=== PATIENT | male | born 1960 | race Caucasian/White ===

== ENCOUNTER 2024-05-22 10:08 | Day surgery (SDC) | payer OTHER ==
[~2024-05-22] VITALS: Ht 180.3 cm; Wt 86.9 kg
[2024-05-22] MEDS: NS 1,000 ML IV ONE (10:42)
[2024-05-22] MEDS ORDERED: propofoL 200 MG/20 ML VIAL As Ordered ONE (11:15)
[2024-05-22] MEDS ORDERED: LIDOCAINE 2% 100MG/5ML SDV (FOR ANES.) As Ordered ONE (11:15)
[2024-05-22 13:12] VITALS: TEMP 96.1
[2024-05-22 13:36] VITALS: BP 128/67; O2SAT 100
== END 2024-05-22 13:51 | disposition home or self-care (01) ==
LOC: M OPP 10:08
PROVIDERS: ATTEND Surgery
DX: Z12.11 Encounter for screening for malignant neoplasm of colon (principal); Z80.0 Family history of malignant neoplasm of digestive organs; D12.6 Benign neoplasm of colon, unspecified; K64.4 Residual hemorrhoidal skin tags; Z87.891 Personal history of nicotine dependence

== ENCOUNTER 2024-07-24 07:30 | Inpatient (IN) | payer OTHER ==
[~2024-07-24] VITALS: Ht 180.3 cm; Wt 86.8 kg
[2024-07-24] MEDS ORDERED: HOME MED LIST COMPLETE! XX SCH (09:55)
[2024-07-24] MEDS ORDERED: NOXI1TAB PO (10:00)
[2024-07-24] MEDS: LR 1,000 ML IV SCH ×3 (10:10→19:25)
[2024-07-24] MEDS: ALVIMOPAN 12 MG CAPSULE (ENTEREG) PO ONE (10:10)
[2024-07-24] MEDS: CelecoXIB 400 MG CAP PO ONE (10:10)
[2024-07-24] MEDS ORDERED: MIDAZOLAM INJ 2MG/2ML VIAL As Ordered ONE (14:19)
[2024-07-24] MEDS ORDERED: LIDOCAINE 2% 100MG/5ML SDV (FOR ANES.) As Ordered ONE (14:19)
[2024-07-24] MEDS ORDERED: ACETAMINOPHEN 1000MG 100ML IV BAG As Ordered ONE (14:19)
[2024-07-24] MEDS ORDERED: propofoL 200 MG/20 ML VIAL As Ordered ONE (14:19)
[2024-07-24] MEDS ORDERED: fentaNYL 100 MCG/2 ML INJECTION As Ordered ONE (14:19)
[2024-07-24] MEDS ORDERED: ROCURONIUM BROMIDE 50MG/5ML VIAL As Ordered ONE (14:20)
[2024-07-24] MEDS: ceFAZolin SOD 2 GM in IV 1 EA IV ONE (15:00)
[2024-07-24] MEDS: metroNIDAZOLE 500 MG in IV 1 EA IV ONE (15:10)
[2024-07-24] MEDS: HEPARIN SOD (PORCINE) 5000UNITS/ML 1ML VIAL/SYRINGE SQ ONE (15:11)
[2024-07-24] MEDS ORDERED: GLYCOPYRROLATE INJ 0.2 MG/ML 2 ML VIAL As Ordered ONE (15:27)
[2024-07-24] MEDS ORDERED: ePHEDrine SULFATE 25 MG/5 ML(5MG/ML) SYRINGE As Ordered ONE (16:03)
[2024-07-24] MEDS ORDERED: SUGAMMADEX SODIUM 500 MG/5 ML VIAL (BRIDION) As Ordered ONE (16:03)
[2024-07-24] MEDS ORDERED: HYDROmorphone HCL 2MG/ML 1ML VIAL As Ordered ONE (16:03)
[2024-07-24] MEDS ORDERED: dexmedeTOMIDine (4MCG/ML)200MCG/50ML BTL (PRECEDEX) As Ordered ONE (16:03)
[2024-07-24] MEDS ORDERED: ONDANSETRON 4MG 2ML VIAL As Ordered ONE (16:06)
[2024-07-24] MEDS ORDERED: KETOROLAC 60MG 2ML VIAL As Ordered ONE (16:21)
[2024-07-24] MEDS ORDERED: METOCLOPRAMIDE INJ 10MG/2ML VIAL As Ordered ONE (16:55)
[2024-07-24] MEDS: INDOCYANINE GREEN 25MG VIAL (IC-GREEN) As Ordered ONE (17:20)
[2024-07-24] MEDS ORDERED: SEVOFLURANE INHAL SOLN 250 ML BTL As Ordered ONE (18:29)
[2024-07-24] MEDS: ceFAZolin 2 GM/D5W 50 ML IV BAG As Ordered ONE (19:00)
[2024-07-24] MEDS: LIDOCAINE 1% SDV 30ML VIAL As Ordered ONE (19:10)
[2024-07-24] MEDS ORDERED: MORPHINE 4 MG/ML 1ML VIAL IV PRN (19:25)
[2024-07-24] MEDS ORDERED: ONDANSETRON 4MG 2ML VIAL IV PRN ×2 (19:25)
[2024-07-24] MEDS ORDERED: fentaNYL 100 MCG/2 ML INJECTION IV PRN (19:25)
[2024-07-24 20:55] VITALS: BP 153/77; TEMP 97.3; O2SAT 95
[2024-07-24 21:22] VITALS: BP 129/70; TEMP 97.3; O2SAT 98
[2024-07-24 22:22] VITALS: BP 109/60; TEMP 97.3; O2SAT 96
[2024-07-24 23:22] VITALS: BP 111/65; TEMP 97.2; O2SAT 94
[2024-07-24] MEDS: KETOROLAC 30 MG/ML 1ML VIAL IV SCH (23:22)
[2024-07-25] VITALS (7 sets, daily range): BP systolic 108–140; BP diastolic 55–90; TEMP 97.2–99.1; O2SAT 94–97
[2024-07-25] MEDS: PERCOCET 5MG/325MG TAB PO PRN ×2 (04:17→15:30)
[2024-07-25 06:01] LABS: BASO % 0.1 % (0.0-1.0); HEMATOCRIT 38.6 % (42.0-52.0); HEMOGLOBIN 13.1 g/dl (13.5-17.5); LYMPH # 0.8 10^3/uL (1.5-5.0); LYMPH % 5.8 % (24.0-44.0); MEAN CORPUSCULAR HEMOGLOBIN 30.3 pg (27.0-33.0); MEAN CORPUSCULAR HGB CONC 33.9 g/dl (32.0-36.5); MEAN CORPUSCULAR VOLUME 89.4 fl (80.0-96.0); MONO # 0.8 10^3/uL (0.0-0.8); MONO % 6.2 % (2.0-8.0); NEUTROPHILS # 11.8 10^3/uL (1.5-8.5); NEUTROPHILS % 87.3 % (36.0-66.0); PLATELET COUNT, AUTOMATED 149 10^3/uL (150-450); RED BLOOD COUNT 4.32 10^6/uL (4.30-6.10); WHITE BLOOD COUNT 13.5 10^3/uL (4.0-10.0)
[2024-07-25 06:41] LABS: BLOOD UREA NITROGEN 14 MG/DL (9-23); CALCIUM LEVEL 8.1 MG/DL (8.3-10.6); CARBON DIOXIDE LEVEL 24 MMOL/L (20-31); CHLORIDE LEVEL 107 MMOL/L (98-107); CREATININE FOR GFR 0.73 MG/DL (0.70-1.30); GLOMERULAR FILTRATION RATE > 60.0 (>49); GLUCOSE, FASTING 141 MG/DL (74-106); POTASSIUM SERUM 4.1 MMOL/L (3.5-5.1); SODIUM LEVEL 139 MMOL/L (136-145)
[2024-07-25] MEDS ORDERED: HOME MED LIST COMPLETE! XX SCH (07:15)
[2024-07-25] MEDS: ENOXAPARIN 40MG/0.4ML SYRINGE (J1650 PER 10MG) SC SCH (09:00)
[2024-07-25] MEDS: ALVIMOPAN 12 MG CAPSULE (ENTEREG) PO SCH (09:32)
[2024-07-25] MEDS: PANTOPRAZOLE 40MG VIAL IV SCH (09:32)
[2024-07-26 04:31] VITALS: BP 132/75; TEMP 98.8; O2SAT 95
[2024-07-26 06:02] LABS: BASO % 0.1 % (0.0-1.0); EOS # 0.1 10^3/uL (0.0-0.5); EOS % 0.9 % (0.0-3.0); HEMATOCRIT 35.1 % (42.0-52.0); HEMOGLOBIN 11.8 g/dl (13.5-17.5); LYMPH # 1.3 10^3/uL (1.5-5.0); LYMPH % 13.3 % (24.0-44.0); MEAN CORPUSCULAR HEMOGLOBIN 30.7 pg (27.0-33.0); MEAN CORPUSCULAR HGB CONC 33.6 g/dl (32.0-36.5); MEAN CORPUSCULAR VOLUME 91.4 fl (80.0-96.0); MONO # 0.9 10^3/uL (0.0-0.8); MONO % 8.9 % (2.0-8.0); NEUTROPHILS # 7.3 10^3/uL (1.5-8.5); NEUTROPHILS % 76.5 % (36.0-66.0); PLATELET COUNT, AUTOMATED 134 10^3/uL (150-450); RED BLOOD COUNT 3.84 10^6/uL (4.30-6.10); WHITE BLOOD COUNT 9.6 10^3/uL (4.0-10.0)
[2024-07-26 06:22] LABS: BLOOD UREA NITROGEN 10 MG/DL (9-23); CALCIUM LEVEL 8.2 MG/DL (8.3-10.6); CARBON DIOXIDE LEVEL 28 MMOL/L (20-31); CHLORIDE LEVEL 109 MMOL/L (98-107); GLOMERULAR FILTRATION RATE > 60.0 (>49); GLUCOSE, FASTING 112 MG/DL (74-106); POTASSIUM SERUM 3.8 MMOL/L (3.5-5.1); SODIUM LEVEL 140 MMOL/L (136-145)
[2024-07-26] MEDS: TAMSULOSIN 0.4 MG CAP PO SCH ×2 (09:14→20:06)
[2024-07-26 12:00] VITALS: BP 157/81; TEMP 98.4; O2SAT 96
[2024-07-26 19:58] VITALS: BP 161/86; TEMP 99; O2SAT 95
[2024-07-26 20:00] VITALS: BP 161/86; TEMP 99; O2SAT 95
[2024-07-27 04:05] VITALS: BP 129/70; TEMP 97.7; O2SAT 95
[2024-07-27 06:04] LABS: BASO % 0.3 % (0.0-1.0); EOS # 0.2 10^3/uL (0.0-0.5); EOS % 1.5 % (0.0-3.0); HEMATOCRIT 34.8 % (42.0-52.0); HEMOGLOBIN 11.7 g/dl (13.5-17.5); LYMPH # 1.3 10^3/uL (1.5-5.0); LYMPH % 13.3 % (24.0-44.0); MEAN CORPUSCULAR HEMOGLOBIN 30.4 pg (27.0-33.0); MEAN CORPUSCULAR HGB CONC 33.6 g/dl (32.0-36.5); MEAN CORPUSCULAR VOLUME 90.4 fl (80.0-96.0); MONO % 10.2 % (2.0-8.0); NEUTROPHILS # 7.3 10^3/uL (1.5-8.5); NEUTROPHILS % 74.2 % (36.0-66.0); PLATELET COUNT, AUTOMATED 130 10^3/uL (150-450); RED BLOOD COUNT 3.85 10^6/uL (4.30-6.10); WHITE BLOOD COUNT 9.9 10^3/uL (4.0-10.0)
[2024-07-27 06:30] LABS: BLOOD UREA NITROGEN 13 MG/DL (9-23); CALCIUM LEVEL 8.3 MG/DL (8.3-10.6); CARBON DIOXIDE LEVEL 27 MMOL/L (20-31); CHLORIDE LEVEL 107 MMOL/L (98-107); GLOMERULAR FILTRATION RATE > 60.0 (>49); GLUCOSE, FASTING 125 MG/DL (74-106); POTASSIUM SERUM 3.5 MMOL/L (3.5-5.1); SODIUM LEVEL 139 MMOL/L (136-145)
[2024-07-27 12:58] VITALS: BP 137/76; TEMP 98.2; O2SAT 97
[2024-07-27 20:49] VITALS: BP 139/77; TEMP 98.8; O2SAT 96
[2024-07-28 06:00] VITALS: BP 111/76; TEMP 98.6; O2SAT 95
[2024-07-28 06:26] LABS: BASO % 0.2 % (0.0-1.0); EOS # 0.3 10^3/uL (0.0-0.5); EOS % 3.5 % (0.0-3.0); HEMATOCRIT 34.8 % (42.0-52.0); HEMOGLOBIN 11.8 g/dl (13.5-17.5); LYMPH # 1.3 10^3/uL (1.5-5.0); LYMPH % 16.1 % (24.0-44.0); MEAN CORPUSCULAR HEMOGLOBIN 29.9 pg (27.0-33.0); MEAN CORPUSCULAR HGB CONC 33.9 g/dl (32.0-36.5); MEAN CORPUSCULAR VOLUME 88.1 fl (80.0-96.0); MONO # 0.6 10^3/uL (0.0-0.8); NEUTROPHILS # 5.8 10^3/uL (1.5-8.5); NEUTROPHILS % 71.8 % (36.0-66.0); PLATELET COUNT, AUTOMATED 150 10^3/uL (150-450); RED BLOOD COUNT 3.95 10^6/uL (4.30-6.10); WHITE BLOOD COUNT 8.1 10^3/uL (4.0-10.0)
[2024-07-28 06:53] LABS: BLOOD UREA NITROGEN 15 MG/DL (9-23); CALCIUM LEVEL 8.3 MG/DL (8.3-10.6); CARBON DIOXIDE LEVEL 26 MMOL/L (20-31); CHLORIDE LEVEL 109 MMOL/L (98-107); CREATININE FOR GFR 0.72 MG/DL (0.70-1.30); GLOMERULAR FILTRATION RATE > 60.0 (>49); GLUCOSE, FASTING 119 MG/DL (74-106); POTASSIUM SERUM 3.5 MMOL/L (3.5-5.1); SODIUM LEVEL 141 MMOL/L (136-145)
[2024-07-28 12:00] VITALS: BP 144/80; TEMP 97.7; O2SAT 97
[2024-07-28] MEDS ORDERED: PERCOCET PO (14:28)
[2024-07-28] MEDS ORDERED: FLOM0.4C39 PO (14:28)
== END 2024-07-28 15:30 | disposition home or self-care (01) | DRG 331 ==
LOC: M OR 09:23 → M MS5PR 21:09
PROVIDERS: ADMIT Surgery; ATTEND Surgery
PROC: 8E0W4CZ Robotic Assisted Procedure of Trunk Region, Percutaneous Endoscopic Approach (ICD-10-PCS; 2024-07-24)
PROC: 0DTF4ZZ Resection of Right Large Intestine, Percutaneous Endoscopic Approach (ICD-10-PCS; principal; 2024-07-24 11:10)
DX: D12.6 Benign neoplasm of colon, unspecified (principal); R33.9 Retention of urine, unspecified

== ENCOUNTER 2024-07-31 01:21 | Emergency (ER) | payer OTHER ==
[~2024-07-31] VITALS: Ht 180.3 cm; Wt 87.0 kg
[~2024-07-31 01:21] MED LIST: FLOM0.4C39 PO; NOXI1TAB PO; PERCOCET PO
[2024-07-31 01:22] VITALS: BP 135/82; TEMP 98.1; O2SAT 98
== END 2024-07-31 05:26 | disposition left against medical advice (07) ==
LOC: M ED 01:21
DX: Z53.21 Procedure and treatment not carried out due to patient leaving prior to being seen by health care provider (principal)